=== PATIENT | female | born 1945 | race Caucasian/White ===

== ENCOUNTER → 2016-11-07 | Outpatient (CLI) | payer MEDICARE ==
[~2016-11-07] MED LIST: AMBIEN10 MG PO; AMLODIPINE10 MG PO; ATORVASTATIN; CELEXA40 MG PO; FLONASE NASAL S16 GM NS; GLUCOPHAGE; HYDROCHLOROTH12.5 M1 PO; LEVOTHYROXINE0.1 MG PO; MULTI VITAMINS1 TAB PO; WELLBUTRIN XL300 MG PO; XANAX0.5 MG PO
== END ==
LOC: BHSO 09:54
DX: F33.42 Major depressive disorder, recurrent, in full remission (principal)

== ENCOUNTER → 2017-01-28 | Outpatient (CLI) | payer MEDICARE | LOC: BHSO 09:41 | DX: F33.42 Major depressive disorder, recurrent, in full remission (principal) ==

== ENCOUNTER → 2017-04-30 | Outpatient (CLI) | payer MEDICARE | LOC: BHSO 09:55 | DX: F42.8 Other obsessive-compulsive disorder (principal) ==

== ENCOUNTER → 2017-07-30 | Outpatient (CLI) | payer MEDICARE | LOC: BHSO 11:15 | DX: F41.1 Generalized anxiety disorder (principal) ==

== ENCOUNTER → 2017-08-15 | Outpatient (CLI) | payer MEDICARE, OTHER | LOC: MC.RAD 08-05 10:20 | DX: Z12.31 Encounter for screening mammogram for malignant neoplasm of breast (principal) ==

== ENCOUNTER → 2017-09-30 | Outpatient (CLI) | payer MEDICARE, OTHER ==
[~2017-09-30] MED LIST changes: +NORCO 325 MG-51 TAB PO; +PRAVACHOL 40MG40 MG PO; +XANAX 0.5MG0.5 MG PO; +ZOFRAN ODT4 MG PO; +ZOLOFT 100MG100 MG PO
== END ==
LOC: BHSO 09:31
DX: F33.42 Major depressive disorder, recurrent, in full remission (principal)

== ENCOUNTER → 2017-12-30 | Outpatient (CLI) | payer MEDICARE, OTHER | LOC: BHSO 11:31 | DX: F33.42 Major depressive disorder, recurrent, in full remission (principal) | CPT/HCPCS: G0463 ==

== ENCOUNTER → 2018-04-23 | Outpatient (CLI) | payer MEDICARE, OTHER | LOC: COL.RAD 08:48 | DX: K44.9 Diaphragmatic hernia without obstruction or gangrene (principal) ==

== ENCOUNTER → 2018-08-27 | Outpatient (CLI) | payer MEDICARE, OTHER ==
[~2018-08-27] MED LIST changes: -AMLODIPINE10 MG PO; +ATARAX50 MG PO; -HYDROCHLOROTH12.5 M1 PO; +LEVOXYL0.1 MG PO; +MICROZIDE12.5 MG PO; +NORVASC 10MG10 MG PO; +WELLBUTRIN XL300 M1 PO; -WELLBUTRIN XL300 MG PO
== END ==
LOC: MC.RAD 09:10
DX: Z12.31 Encounter for screening mammogram for malignant neoplasm of breast (principal)

== ENCOUNTER 2018-11-26 10:15 | Outpatient (RCR) | payer MEDICARE | END 2018-11-30 11:52 | disposition home or self-care (01) | LOC: WSC 10:15 | DX: M54.5 Low back pain (principal); G89.29 Other chronic pain; M54.2 Cervicalgia; Z79.899 Other long term (current) drug therapy | CPT/HCPCS: G8981-GP; G8982-GP ==

== ENCOUNTER → 2018-12-29 | Outpatient (CLI) | payer MEDICARE | LOC: BHSO 09:13 | DX: F41.1 Generalized anxiety disorder (principal) | CPT/HCPCS: G0463 ==

== ENCOUNTER → 2019-05-17 | Outpatient (CLI) | payer MEDICARE, OTHER | LOC: MHCPAIN 12:37 | DX: G89.29 Other chronic pain (principal); M47.817 Spondylosis without myelopathy or radiculopathy, lumbosacral region; M54.16 Radiculopathy, lumbar region; M53.3 Sacrococcygeal disorders, not elsewhere classified; M48.061 Spinal stenosis, lumbar region without neurogenic claudication | CPT/HCPCS: G0463 ==

== ENCOUNTER → 2019-07-15 | Outpatient (CLI) | payer MEDICARE | LOC: BHSO 09:35 | DX: F33.42 Major depressive disorder, recurrent, in full remission (principal) | CPT/HCPCS: G0463 ==

== ENCOUNTER → 2019-09-28 | Outpatient (CLI) | payer MEDICARE | LOC: MC.RAD 08:55 | DX: Z12.31 Encounter for screening mammogram for malignant neoplasm of breast (principal) ==

== ENCOUNTER → 2019-12-30 | Outpatient (CLI) | payer MEDICARE | LOC: BHSO 08:53 | DX: F33.42 Major depressive disorder, recurrent, in full remission (principal) | CPT/HCPCS: G0463 ==

== ENCOUNTER → 2020-06-28 | Outpatient (CLI) | payer MEDICARE | LOC: BHSO 08:47 | DX: F33.42 Major depressive disorder, recurrent, in full remission (principal) | CPT/HCPCS: G0463 ==

== ENCOUNTER → 2021-01-22 | Outpatient (CLI) | payer MEDICARE ==
[~2021-01-22] MED LIST changes: +CELEBREX 200MG200 MG PO; +CLARITIN 1010 MG/TAB PO; +KRILL OIL 5001 EACH PO; +PROTONIX 40MG T40 MG PO
== END ==
LOC: MC.RAD 11-02 13:15
DX: Z12.31 Encounter for screening mammogram for malignant neoplasm of breast (principal)

== ENCOUNTER 2021-03-06 02:42 | Observation (INO) | payer MEDICARE ==
[~2021-03-06] VITALS: Ht 157.6 cm; Wt 76.4 kg
[2021-03-06] VITALS (10 sets, daily range): BP systolic 123–147; BP diastolic 64–79; PULSE 74–95; TEMP 98.2–98.5
[~2021-03-06 02:42] MED LIST changes: -CELEBREX 200MG200 MG PO; -CLARITIN 1010 MG/TAB PO; -KRILL OIL 5001 EACH PO; -PROTONIX 40MG T40 MG PO
[2021-03-06 02:58] LABS: BASO # 0.1 (0.0-0.2); EOS # 0.2 (0.0-0.7); EOS % 2.1 % (0-4.0); GRAN # 5.1 (1.4-6.5); GRAN % 55.8 % (42.2-75.2); HEMATOCRIT 37.4 % (37.0-47.0); LYMPH # 3.1 (1.2-3.4); LYMPH % 33.6 % (20.0-51.0); MEAN CELL VOLUME 84 fl (80.0-100.0); MEAN CORPUSCULAR HEMOGLOBIN 29 pg (27.0-31.0); MEAN CORPUSCULAR HGB CONC 35 g/dl (33.0-37.0); MONO # 0.7 (0.1-0.6); MONO % 7.3 % (1.7-9.3); PLATELET COUNT 337 K/mm3 (130-400); RED BLOOD COUNT 4.43 M/mm3 (4.10-5.30); REDCELL DISTRIBUTION WIDTH-CV 13.2 % (11.5-14.5)
[2021-03-06 03:10] LABS: ALANINE AMINOTRANSFERASE 34 U/L (4-34); ALKALINE PHOSPHATASE 92 U/L (50-136); ANION GAP 13 mmol/L (7-16); AST,SGOT 47 U/L (15-37); BILIRUBIN,TOTAL 0.3 mg/dL (0.0-1.0); BLOOD UREA NITROGEN 15 mg/dL (7-17); CALCIUM 9.4 mg/dL (8.4-10.2); CARBON DIOXIDE 26 mmol/L (22-30); CHLORIDE 96 mmol/L (98-107); CREATINE KINASE 47 U/L (30-135); CREATININE, serum 0.63 (0.52-1.25); GLUCOSE 112 mg/dL (74-106); LIPASE 176 U/L (23-300); POTASSIUM 3.4 mmol/L (3.4-5.0); SODIUM 135 mmol/L (137-145); TOTAL PROTEIN 8.1 gm/dL (6.4-8.2)
[2021-03-06 03:22] LABS: TROPONIN-I < 0.012 ng/mL (0.000-0.035)
[2021-03-06] MEDS ORDERED: PROTONIX 40MG T40 MG PO (03:32)
[2021-03-06] MEDS ORDERED: CLARITIN 1010 MG/TAB PO (03:33)
[2021-03-06] MEDS ORDERED: CELEBREX 200MG200 MG PO (03:33)
--- NOTE | 2021-03-06 06:19 | NUR ---
RECEIVED PT TO MEDICAL FLOOR FROM ED TO ROOM 314 AT 0530. PT A/O X4, VSS, 02 ROOM AIR. CURRENTLY REPORTS NO PAIN, N/V/, TELE ON, SCD ON, CALL LIGHT WITHIN REACH.
[2021-03-06 07:17] LABS: PROTHROMBIN TIME 11.5 SECONDS (9.7-12.8)
[2021-03-06 07:18] LABS: CHOLESTEROL 206 mg/dL (120-200); CHOLESTEROL RISK RATIO 3.4; HDL CHOLESTEROL 59 mg/dL; LDL CHOLESTEROL 89 mg/dL; TRIGLYCERIDE 288 mg/dL
--- NOTE | 2021-03-06 08:53 | NUR ---
Pt awake and alert upon entry this morning, C/O mild epigastric area pain. Shift assessments complete, left Pt call light in reach, bed in lowest position.
--- NOTE | 2021-03-06 10:49 | NUR ---
First visit from the walnut dehydrator operator. No needs right now.
--- NOTE | 2021-03-06 10:56 | NUR ---
Paste Thinner attended clinical rounds with the team. After rounds, SW met with the patient to complete intake. The patient lives in [place] with her , Gregory. The patient is independent and denies DME use. The patient's PCP is Dr. Machuca and patient receives medications from [facility]. The patient does not have advanced directives but was interested in DPOA-HC form. Form provided. The patient plans to return home with Gregory. *Discharge disposition: Home with spouse
[2021-03-06 11:14] LABS: HEMOGLOBIN 12.1 g/dl (12.5-16.0)
[2021-03-06 11:20] LABS: HEMATOCRIT 35.3 % (37.0-47.0)
--- NOTE | 2021-03-06 20:00 | NUR ---
Assessment complete. Patient is watching in tv in bed, alert and oriented with no complaints of pain. She does state she is still feeling indigestion but it is not the severe epigastric pain that she came in with. She denies need for medications to soothe this discomfort. Heart sounds are normal/regular and lungs are clear. NS infusing into left wrist IV. No edema or skin issues are noted. Patient ambulates independently in room. Refreshments and comfort measures provided. NO new concerns, call light in reach.
[2021-03-07 04:36] VITALS: BP 140/74; PULSE 71; TEMP 98.2
[2021-03-07 06:57] LABS: BASO # 0.1 (0.0-0.2); BASO % 0.8 % (0.0-2.0); EOS # 0.1 (0.0-0.7); EOS % 1.7 % (0-4.0); GRAN # 4.7 (1.4-6.5); GRAN % 61.5 % (42.2-75.2); LYMPH % 26.8 % (20.0-51.0); MEAN CELL VOLUME 87 fl (80.0-100.0); MEAN CORPUSCULAR HEMOGLOBIN 30 pg (27.0-31.0); MEAN CORPUSCULAR HGB CONC 34 g/dl (33.0-37.0); MEAN PLATELET VOLUME 9.3 fl (7.4-10.4); MONO # 0.7 (0.1-0.6); MONO % 8.9 % (1.7-9.3); PLATELET COUNT 283 K/mm3 (130-400); RED BLOOD COUNT 3.72 M/mm3 (4.10-5.30); REDCELL DISTRIBUTION WIDTH-CV 13.6 % (11.5-14.5)
[2021-03-07 06:58] LABS: ANION GAP 7 mmol/L (7-16); BLOOD UREA NITROGEN 7 mg/dL (7-17); CALCIUM 7.9 mg/dL (8.4-10.2); CARBON DIOXIDE 26 mmol/L (22-30); CHLORIDE 102 mmol/L (98-107); CREATININE, serum 0.53 (0.52-1.25); GLUCOSE 95 mg/dL (74-106); POTASSIUM 3.3 mmol/L (3.4-5.0); SODIUM 135 mmol/L (137-145)
[2021-03-07 07:05] LABS: TROPONIN-I < 0.012 ng/mL (0.000-0.035)
[2021-03-07 07:18] LABS: HEMATOCRIT 32.2 % (37.0-47.0)
[2021-03-07 07:37] VITALS: BP 119/58; PULSE 69; TEMP 98.1
--- NOTE | 2021-03-07 08:38 | NUR ---
Pt awake and alert upon entry, sittingg on side of bed eating breakfast. No C/O pain at this time. Shift assessment complete, left Pt call light in reach, bed in lowest position.
[2021-03-07] MEDS ORDERED: KRILL OIL 5001 EACH PO (08:47)
[2021-03-07] MEDS ORDERED: PROTONIX 40MG T40 MG PO (08:48)
--- NOTE | 2021-03-07 11:30 | NUR ---
Pt discharged to home, discussed discharge information with Pt, answered questions. Pt escorted by PCT to entrance, Pt left with spouse via private transportation.
== END 2021-03-07 11:30 | disposition home or self-care (01) ==
LOC: COL.ER 02:42 → MEDICAL 03:50
PROVIDERS: Emergency Medicine; Hospitalist; Student in an Organized Health Care Education/Training Program; ADMIT Student in an Organized Health Care Education/Training Program
DX: R10.13 Epigastric pain (principal); M25.512 Pain in left shoulder; K92.0 Hematemesis; K21.9 Gastro-esophageal reflux disease without esophagitis; K44.9 Diaphragmatic hernia without obstruction or gangrene; I10 Essential (primary) hypertension; E78.5 Hyperlipidemia, unspecified; F32.9 Major depressive disorder, single episode, unspecified; F41.9 Anxiety disorder, unspecified; E03.9 Hypothyroidism, unspecified; Z86.010 Personal history of colon polyps; Z79.899 Other long term (current) drug therapy; Z79.890 Hormone replacement therapy; Z87.891 Personal history of nicotine dependence; Z82.49 Family history of ischemic heart disease and other diseases of the circulatory system
CPT/HCPCS: A9500; C9113; G0378; J2704; J2785; J7030; Q9967

== ENCOUNTER 2022-01-12 07:13 | Inpatient (IN) | payer MEDICARE ==
[~2022-01-12] VITALS: Ht 157.5 cm; Wt 79.1 kg
[~2022-01-12 07:13] MED LIST changes: +CELEBREX 200MG200 MG PO; +CLARITIN 1010 MG/TAB PO; +KRILL OIL 5001 EACH PO; +PROTONIX 40MG T40 MG PO
[2022-01-12 08:04] LABS: BASO # 0.1 K/mm3 (0.0-0.2); BASO % 1.2 % (0.0-2.0); EOS # 0.1 K/mm3 (0.0-0.7); EOS % 1.8 % (0.0-4.0); GRAN # 2.7 K/mm3 (1.4-6.5); GRAN % 52.9 % (42.2-75.2); HEMOGLOBIN 12.7 g/dl (12.5-16.0); LYMPH # 1.8 K/mm3 (1.2-3.4); LYMPH % 35.5 % (20.0-51.0); MEAN CELL VOLUME 85 fl (80.0-100.0); MEAN CORPUSCULAR HEMOGLOBIN 30 pg (27-31); MEAN CORPUSCULAR HGB CONC 35 g/dl (33.0-37.0); MONO # 0.4 K/mm3 (0.1-0.6); MONO % 8.4 % (1.7-9.3); PLATELET COUNT 301 K/mm3 (130-400); RED BLOOD COUNT 4.29 M/mm3 (4.10-5.30); REDCELL DISTRIBUTION WIDTH-CV 12.9 % (11.5-14.5)
[2022-01-12 08:05] LABS: HEMATOCRIT 36.3 % (37.0-47.0)
[2022-01-12 08:21] LABS: ALBUMIN 4.1 gm/dL (3.4-4.8); BILIRUBIN,TOTAL 0.5 mg/dL (0.2-1.2); CALCIUM 8.8 mg/dL (8.4-10.2); CREATININE, serum 0.7 mg/dL (0.57-1.11); POTASSIUM 3.3 mmol/L (3.5-4.5); TOTAL PROTEIN 7.1 gm/dL (6.2-8.1)
[2022-01-12 08:32] LABS: PROTHROMBIN TIME 11.6 SECONDS (9.7-12.8)
[2022-01-12 08:38] LABS: COLLECTION METHOD IN
[2022-01-12 08:52] LABS: PH 8 (5-8); SQUAMOUS EPITHELIAL 0-2 /hpf (0-10); URINE APPEARANCE Clear (CLEAR/HAZY); URINE BACTERIA None Seen /hpf (NONE SEEN); URINE BILIRUBIN Negative (NEGATIVE); URINE BLOOD Negative (NEGATIVE); URINE COLOR Yellow (YELLOW); URINE GLUCOSE Negative (NEGATIVE); URINE KETONE Negative (NEGATIVE); URINE LEUKOCYTE ESTERASE Negative (NEGATIVE); URINE NITRATE Negative (NEGATIVE); URINE PROTEIN(semi-quant) Negative (NEGATIVE); URINE RBC 0-2 /hpf (0-2); URINE UROBILINOGEN Negative (NEGATIVE)
[2022-01-12] MEDS ORDERED: NORVASC 5MG5 MG/TAB PO (10:54)
[2022-01-12] MEDS ORDERED: WELLBUTRIN SR150 M1 PO (10:57)
[2022-01-12] MEDS ORDERED: HCTZ12.5TAB (10:58)
[2022-01-12] MEDS ORDERED: PRAVACHOL 40MG40 MG PO (10:59)
[2022-01-12] MEDS ORDERED: ZOLOFT 100MG100 MG (11:00)
[2022-01-12] MEDS ORDERED: EUTHYROX100 MCG PO (11:01)
[2022-01-12] MEDS ORDERED: CALTRATE-600 W600 MG PO (11:03)
[2022-01-12] MEDS ORDERED: CENTRUM SILVER1 CTB PO (11:04)
[2022-01-12] MEDS ORDERED: CENTRUM CHEWAB1 EAC4 PO (11:04)
[2022-01-12] MEDS ORDERED: PROBIOTIC BLEN1 EACH PO (11:05)
[2022-01-12] MEDS ORDERED: LEXAPRO 5MG5 MG PO (11:10)
[2022-01-12] MEDS ORDERED: PROTONIX 40MG T40 MG PO (11:11)
[2022-01-12 12:12] VITALS: BP 137/85; PULSE 64; TEMP 98.3
[2022-01-12 12:15] VITALS: BP 130/73; PULSE 95; TEMP 98.3
--- NOTE | 2022-01-12 13:19 | NUR ---
PT TRANSFERRED FROM ED TO SX FLOOR ROOM 343 AT 1212 THIS AFTERNOON, PT ABLE TO PIVOT FROM BED TO SX ROOM BED. PT UNSTEADY ON FEET. GAIT IMPAIRED. PT REQUIRES SBA. PT A/OX, ROOM AIR, VSS, PT SENSITIVE TO LIGHT. PERRLA WNL; LEFT EYE MILDY SLUGGISH. NEURO ASSESMENT COMPLETE. PT STRENGTH WNL. PT ABLE TO FOLLOW COMMANDS AND RELAY NEEDS AND CONCERNS. ASSESMENT COMPLETE. MED REC COMPLETE. PT ORIENTED TO ROOM, FLOOR AND HOSPITAL POLICY. PT INSTRUCTED TO USE CALL LIGHT TO AMBULATE. ALL NEEDS MET AT THIST TIME. CALL LIGHT WITHIN REACH. PT ARRIVES TO ROOM AT 1310. PT REMAINS BEDSIDE.
--- NOTE | 2022-01-12 14:15 | NUR ---
THIS NURSE CALLED NEURO CONSULT TO DR. PENA OFFICE. HAY STACKER TOOK CONSULT AND ENSURES TO RELAY.
[2022-01-12 15:41] VITALS: BP 132/62; PULSE 80; TEMP 98.4
--- NOTE | 2022-01-12 18:45 | NUR ---
Bedside shift report received, assumed care for shift nurse manager.
--- NOTE | 2022-01-12 20:00 | NUR ---
Assessment complete. A&Ox3. Denies pain/nausea/shortness of breath. VS stable. Eye patch to left eye. INT to right AC flushes without difficulty. Tele reporting NSR. Plan of care discussed for this shift to include meds/NCQ4/calling for questions/concerns. Verbalizes understanding. Call light in reach. Will monitor.
[2022-01-12 20:42] VITALS: BP 135/74; PULSE 84; TEMP 98.1
[2022-01-12 23:38] VITALS: BP 138/78; PULSE 82; TEMP 98.6
[2022-01-13 03:11] VITALS: BP 142/77; PULSE 85; TEMP 98.3
--- NOTE | 2022-01-13 05:08 | NUR ---
Patient had an uneventful night. A&Ox3. Denies pain/nausea/shortness of breath. VS stable. Still c/o double vision-left pupil sluggish to light otherwise neuros WNL. TELE reporting NSR. Denies current needs. Call light in reach. Will monitor.
[2022-01-13 06:28] LABS: BASO # 0.1 K/mm3 (0.0-0.2); BASO % 0.8 % (0.0-2.0); EOS # 0.1 K/mm3 (0.0-0.7); EOS % 1.8 % (0.0-4.0); GRAN # 3.1 K/mm3 (1.4-6.5); GRAN % 49.2 % (42.2-75.2); HEMOGLOBIN 11.9 g/dl (12.5-16.0); LYMPH # 2.5 K/mm3 (1.2-3.4); LYMPH % 39.5 % (20.0-51.0); MEAN CELL VOLUME 87 fl (80.0-100.0); MEAN CORPUSCULAR HEMOGLOBIN 30 pg (27-31); MEAN CORPUSCULAR HGB CONC 35 g/dl (33.0-37.0); MEAN PLATELET VOLUME 9.2 fl (7.4-10.4); MONO # 0.5 K/mm3 (0.1-0.6); MONO % 8.4 % (1.7-9.3); PLATELET COUNT 313 K/mm3 (130-400); RED BLOOD COUNT 3.94 M/mm3 (4.10-5.30); REDCELL DISTRIBUTION WIDTH-CV 12.9 % (11.5-14.5)
[2022-01-13 06:33] LABS: HEMATOCRIT 34.3 % (37.0-47.0)
[2022-01-13 06:41] LABS: ALBUMIN 3.6 gm/dL (3.4-4.8); CALCIUM 8.7 mg/dL (8.4-10.2); CREATININE, serum 0.68 mg/dL (0.57-1.11); MAGNESIUM 2.1 mg/dL (1.6-2.6); PHOSPHOROUS 3.2 mg/dL (2.3-4.7); POTASSIUM 3.7 mmol/L (3.5-4.5)
[2022-01-13 08:00] VITALS: BP 131/72; PULSE 77; TEMP 98.4
--- NOTE | 2022-01-13 10:41 | NUR ---
PT UP AMBULATING WITH THERAPY. PT RETURNED TO ROOM. AM MEDS GIVEN, AMS SEEMS TO BE CLEARING. PT IS CURRENTLY A\O X4, PT NOT PRESENTING WITH CONFUSION AT THIS TIME.
--- NOTE | 2022-01-13 11:04 | NUR ---
bench worker binding met with patient to discuss discharge plan. Patient currently lives at home with her Gregory ([phone]) in [place]. She is independent with her ADL's and does not utilize any DME to assist with mobility, but states that she does have access to a walker at home. Paresh has no oxygen needs at home. PCP is and she uses [facility] for perscriptions with no cost difficulty. Patient does not currently have a DPOA-HC established but states her PCP has given her the paperwork, she just hasn't filled it out yet. Patient would like to go home post discharge if she is able to. She has an MRI scheduled for Friday. Informed her that PT/OT has been ordered and that we would work with their recommendations to get her back home. Discharge plan: Home * pending PT/OT rec's *
[2022-01-13 11:49] VITALS: BP 144/80; PULSE 82; TEMP 97.8
[2022-01-13 15:30] VITALS: BP 149/88; PULSE 76; TEMP 98.1
[2022-01-13 19:52] VITALS: BP 154/86; PULSE 79; TEMP 98.1
--- NOTE | 2022-01-13 20:00 | NUR ---
PT RESTING IN BED. WEARING LT EYE PATCH. STILL HAVING DIPLOPIA. NEURO WNL. CALL LIGHT IN REACH. BED ALARM SET.
[2022-01-14 00:25] VITALS: BP 136/80; PULSE 80; TEMP 98.2
[2022-01-14 03:43] VITALS: BP 142/71; PULSE 76; TEMP 97.7
[2022-01-14 05:39] LABS: BASO # 0.1 K/mm3 (0.0-0.2); BASO % 0.9 % (0.0-2.0); EOS # 0.1 K/mm3 (0.0-0.7); EOS % 1.4 % (0.0-4.0); GRAN # 4.4 K/mm3 (1.4-6.5); GRAN % 56.4 % (42.2-75.2); HEMOGLOBIN 12.4 g/dl (12.5-16.0); LYMPH # 2.6 K/mm3 (1.2-3.4); LYMPH % 33.1 % (20.0-51.0); MEAN CELL VOLUME 88 fl (80.0-100.0); MEAN CORPUSCULAR HEMOGLOBIN 30 pg (27-31); MEAN CORPUSCULAR HGB CONC 34 g/dl (33.0-37.0); MEAN PLATELET VOLUME 9.2 fl (7.4-10.4); MONO # 0.6 K/mm3 (0.1-0.6); MONO % 7.9 % (1.7-9.3); PLATELET COUNT 315 K/mm3 (130-400); RED BLOOD COUNT 4.21 M/mm3 (4.10-5.30); REDCELL DISTRIBUTION WIDTH-CV 13.1 % (11.5-14.5)
[2022-01-14 05:51] LABS: ALBUMIN 3.9 gm/dL (3.4-4.8); CALCIUM 9.2 mg/dL (8.4-10.2); CREATININE, serum 0.77 mg/dL (0.57-1.11); MAGNESIUM 2.2 mg/dL (1.6-2.6); PHOSPHOROUS 4.2 mg/dL (2.3-4.7); POTASSIUM 4.2 mmol/L (3.5-4.5)
[2022-01-14 07:07] VITALS: BP 133/78; PULSE 81; TEMP 98.3
--- NOTE | 2022-01-14 10:33 | NUR ---
Assessment completed, alert/oriented, vital signs stable, denies pain or discomfort, reports dizziness is improved, wearing left eye cover and stated she check earlier and felt she still had some double vision, she has had her heart MRI and ECHO done this morning, heart RRR/dsital pulses are palapble, lungs CTA no resp.difficulty noted, she is sitting up eating some breakfast and OT just came in to work with her, denies other needs at this time
--- NOTE | 2022-01-14 11:34 | NUR ---
Jess, with OT, notified BI that they would recommend outpatient OT with [facility] at the [facility] for vision. BI met with the patient and reviewed the above with her. The patient is interested in getting set up at the [facility] for OT. BI attempted to contact [facility] to schedule an appointment. BI left them a voicemail.
[2022-01-14 12:10] VITALS: BP 120/75; PULSE 93; TEMP 98.6
--- NOTE | 2022-01-14 13:36 | NUR ---
First visit from the boot maker. prayed with patient. No other needs right now
[2022-01-14 16:22] VITALS: BP 125/68; PULSE 88; TEMP 97.8
[2022-01-14 21:12] VITALS: BP 140/84; PULSE 91; TEMP 98
--- NOTE | 2022-01-15 | NUR ---
Report received from YANCI Garrett. Patient is laying quietly in bed eating her evening meal, spouse at the bedside. Patient states that she is still seeing double in her left eye but that it has improved significantly. Full body assessment completed and vital signs are WNL. Patient ambulates well independently, gait is steady and patient denies weakness. Patient denies pain at this time and has no other complaints at this time. Per report patient is to possibly discharge 01/15/22 to home. Patient expresses understanding. Call light within reach.
[2022-01-15 00:13] VITALS: BP 120/72; PULSE 84; TEMP 98.1
[2022-01-15 04:22] VITALS: BP 110/61; PULSE 71; TEMP 97.6
[2022-01-15 06:44] LABS: BASO # 0.1 K/mm3 (0.0-0.2); EOS # 0.1 K/mm3 (0.0-0.7); EOS % 1.6 % (0.0-4.0); GRAN # 4.2 K/mm3 (1.4-6.5); GRAN % 57.4 % (42.2-75.2); HEMATOCRIT 37.3 % (37.0-47.0); HEMOGLOBIN 12.9 g/dl (12.5-16.0); LYMPH # 2.3 K/mm3 (1.2-3.4); MEAN CELL VOLUME 87 fl (80.0-100.0); MEAN CORPUSCULAR HEMOGLOBIN 30 pg (27-31); MEAN CORPUSCULAR HGB CONC 35 g/dl (33.0-37.0); MEAN PLATELET VOLUME 9.4 fl (7.4-10.4); MONO # 0.6 K/mm3 (0.1-0.6); MONO % 7.7 % (1.7-9.3); PLATELET COUNT 316 K/mm3 (130-400); RED BLOOD COUNT 4.27 M/mm3 (4.10-5.30); REDCELL DISTRIBUTION WIDTH-CV 12.9 % (11.5-14.5)
[2022-01-15 06:58] LABS: CALCIUM 9.2 mg/dL (8.4-10.2); CREATININE, serum 0.76 mg/dL (0.57-1.11); MAGNESIUM 2.1 mg/dL (1.6-2.6); POTASSIUM 3.6 mmol/L (3.5-4.5)
[2022-01-15 07:05] VITALS: BP 118/61; PULSE 76; TEMP 98.5
--- NOTE | 2022-01-15 07:30 | NUR ---
Shift assessment completed. INT intact in right antecubital with no signs of redness. Tele intact. Reports diplopia improvement with minimal double vision. Reports no dizziness or discomfort.
[2022-01-15 10:50] VITALS: BP 131/73; PULSE 94; TEMP 97.7
[2022-01-15] MEDS ORDERED: PLAVIX 75MG TAB75 MG PO (12:50)
[2022-01-15] MEDS ORDERED: NORVASC 10MG10 MG PO (12:50)
--- NOTE | 2022-01-15 13:49 | NUR ---
The patient is to discharge back home with her today, 01/15, with outpatient OT at [facility]. BI faxed the patient's orders to [facility]. BI and BI student met with the patient and presented and read the IM form outloud to her. The patient verbalized understanding and signed the form. BI student provided her with a copy.
== END 2022-01-15 14:14 | disposition home or self-care (01) | DRG 69 ==
LOC: COL.ER 07:13 → SURG 10:08
PROVIDERS: Student in an Organized Health Care Education/Training Program; ADMIT Internal Medicine
DX: G45.9 Transient cerebral ischemic attack, unspecified (principal); E03.9 Hypothyroidism, unspecified; H53.2 Diplopia; K21.9 Gastro-esophageal reflux disease without esophagitis; I10 Essential (primary) hypertension; F41.9 Anxiety disorder, unspecified; F32.A Depression, unspecified; H55.00 Unspecified nystagmus; I08.1 Rheumatic disorders of both mitral and tricuspid valves; Z87.891 Personal history of nicotine dependence; Z23 Encounter for immunization
CPT/HCPCS: 99232-AI; 99233-AI; 99239; A9575; J1644; J7030; Q9967

== ENCOUNTER → 2022-02-14 | Outpatient (CLI) | payer MEDICARE ==
[~2022-02-14] MED LIST changes: +CALTRATE-600 W600 MG PO; +CENTRUM CHEWAB1 EAC4 PO; +CENTRUM SILVER1 CTB PO; +EUTHYROX100 MCG PO; +HCTZ12.5TAB; +LEXAPRO 5MG5 MG PO; +NORVASC 5MG5 MG/TAB PO; +PLAVIX 75MG TAB75 MG PO; +PROBIOTIC BLEN1 EACH PO; +WELLBUTRIN SR150 M1 PO; +ZOLOFT 100MG100 MG
== END ==
LOC: MC.RAD 13:05
DX: Z12.31 Encounter for screening mammogram for malignant neoplasm of breast (principal)